=== PATIENT | female | born 1970 | race Two or more races ===

== ENCOUNTER 2018-09-28 10:37 | Emergency (ER) | payer MEDICAID ==
[~2018-09-28] VITALS: Ht 162.6 cm; Wt 78.5 kg
[~2018-09-28 10:37] MED LIST: PANT40TA2 PO
[2018-09-28] MEDS ORDERED: IOHEXOL 300 MG/ML 100ML BOTTLE IJ ONE (13:25)
[2018-09-28 15:45] VITALS: BP 128/77
== END 2018-09-28 15:47 | disposition home or self-care (01) ==
LOC: ER 10:37
DX: M54.2 Cervicalgia (principal); I10 Essential (primary) hypertension; R13.10 Dysphagia, unspecified; Z88.8 Allergy status to other drugs, medicaments and biological substances
CPT/HCPCS: 70490; 70491; 71250; 83605; 87040; 99284; Q9967